=== PATIENT | female | born 1965 | race Caucasian/White ===

== ENCOUNTER 2022-05-07 11:39 | Emergency (ER) | payer OTHER ==
[2022-05-07 12:40] LABS: BASOPHIL 0.9 % (0-2); EOSINOPHIL 1.3 % (0-5); HGB 13.2 g/dl (12.5-16.0); MCH 26.2 pg (25.0-31.0); MCHC 32.2 g/dL (32.0-36.0); MCV 81.5 fL (78.0-100.0); MONOCYTE 6.6 % (0-12); MPV 10.5 fL (6.0-9.5); NRBC 0; PLT 310 K/uL (150-400); RBC 5.03 M/uL (4.20-5.40); RDW 17.6 % (11.5-14.0); WBC 8.2 K/uL (4.0-10.5)
[2022-05-07 12:46] LABS: INR 1.08 (0.9-1.2); PROTHROMBIN TIME 13.4 SECONDS (11.8-13.4); PTT 28.4 SECONDS (24.4-34.7)
[2022-05-07 12:53] LABS: ALBUMIN 3.6 g/dL (3.4-5.0); BILIRUBIN - TOTAL 0.5 mg/dL (0.2-1.0); BUN/CREAT RATIO (CALC) 14.9 RATIO; CREATININE 0.74 mg/dL (0.51-0.95); GLOBULIN (CALCULATION) 4.1 g/dL; POTASSIUM 3.8 mmol/L (3.5-5.1); TOTAL PROTEIN 7.7 g/dL (6.4-8.2)
[2022-05-07 13:19] LABS: BILIRUBIN 3+ mg/dL (NEGATIVE); BLOOD NEGATIVE Ery/uL (NEGATIVE); CLARITY CLOUDY (CLEAR); COLOR YELLOW (YELLOW); GLUCOSE (U) NORMAL (NORMAL); LEUKOCYTES NEGATIVE Leu/uL (NEGATIVE); NITRITE NEGATIVE (NEGATIVE); PROTEIN 1+ mg/dL (NEGATIVE); SPECIFIC GRAVITY >=1.030 (1.001-1.030); UROBILINOGEN 0.2 mg/dL (0.2-1.0)
[2022-05-07 13:22] LABS: AMPHETAMINES NEGATIVE (NEGATIVE); BARBITURATES NEGATIVE (NEGATIVE); ECSTASY (MDMA) NEGATIVE (NEGATIVE); MARIJUANA (THC) POSITIVE (NEGATIVE); METHADONE NEGATIVE (NEGATIVE); OPIATES NEGATIVE (NEGATIVE); OXYCODONE NEGATIVE (NEGATIVE)
[2022-05-07 13:28] LABS: BACTERIA 1+; SQUAMOUS EPITHELIAL CELLS 20-50; URINARY RBC RARE
== END 2022-05-07 15:21 | disposition home or self-care (01) ==
LOC: FER 11:39
PROVIDERS: Emergency Medicine
DX: R20.2 Paresthesia of skin (principal); I10 Essential (primary) hypertension; Z88.5 Allergy status to narcotic agent; Z88.8 Allergy status to other drugs, medicaments and biological substances; Z28.310 Unvaccinated for COVID-19
CPT/HCPCS: 36415; 70450; 70551; 71045; 80053; 80305; 81001; 84443; 85025; 85610; 85730; 93005; J2060